=== PATIENT | male | born 1995 | race Hispanic/Latino ===

== ENCOUNTER 2018-03-24 21:52 | Emergency (ER) | payer SELFPAY ==
[~2018-03-24] VITALS: Ht 170.2 cm; Wt 88.0 kg
[2018-03-24] MEDS ORDERED: NAPROSYN500 MG PO (23:20)
[2018-03-24 23:40] VITALS: BP 146/86
== END 2018-03-24 23:40 | disposition home or self-care (01) | DRG 153 ==
LOC: ED 21:52
DX: J06.9 Acute upper respiratory infection, unspecified (principal); M94.0 Chondrocostal junction syndrome [Tietze]; F17.210 Nicotine dependence, cigarettes, uncomplicated